=== PATIENT | female | born 1950 | race Caucasian/White ===

== ENCOUNTER 2024-07-03 17:07 | Inpatient (IN) | payer MEDICARE ==
[~2024-07-03] VITALS: Ht 170.2 cm; Wt 45.0 kg
[~2024-07-03 17:07] MED LIST: ? HTN MED; ALBU90OI6 INH; CITA20 PO; LISI20 PO; LISI5 PO; TRAACE PO; [UNRECOGNIZED DRUG - REMARK]
[2024-07-03 17:56] LABS: BASOPHILS ABSOLUTE AUTO 0.03 K/mm3 (0.00-0.23); BASOPHILS PERCENT AUTO 1 % (0-2); EOSINOPHILS PERCENT AUTO 0 % (0-6); Hematocrit 42.2 % (33.0-51.0); Hemoglobin 14.4 g/dL (11.5-16.0); IMMATURE GRAN ABSOLUTE AUTO 0.07 K/mm3 (0.00-0.10); IMMATURE GRAN PERCENT AUTO 1 % (0-1); LYMPHOCYTES ABSOLUTE AUTO 0.53 K/mm3 (0.84-5.20); LYMPHOCYTES PERCENT AUTO 10 % (21-46); MONOCYTES ABSOLUTE AUTO 0.51 K/mm3 (0.16-1.47); MONOCYTES PERCENT AUTO 10 % (4-13); Mean Corpuscular HGB 31.9 pg (26.0-34.0); Mean Corpuscular HGB Conc 34.1 g/dL (31.5-36.5); Mean Corpuscular Volume 93 fL (80-100); Mean Platelet Volume 10.4 fL (9.1-12.4); NEUTROPHILS ABSOLUTE AUTO 4.05 K/mm3 (1.96-9.15); NEUTROPHILS PERCENT AUTO 78 % (41-73); Platelet Count 79 K/mm3 (150-400); RDW Coefficient Variation 12.1 % (11.7-14.2); RDW Standard Deviation 42.4 fL (35.1-46.3); Red Blood Cell Count 4.52 M/mm3 (3.80-5.20); White Blood Cell Count 5.19 K/mm3 (4.00-11.30)
[2024-07-03 18:14] LABS: Bun/Creatinine Ratio 55.7 (12.0-20.0); Calcium, Blood 8.6 mg/dL (8.5-10.1); Creatinine, Blood 0.43 mg/dL (0.40-1.00); Potassium, Blood 3.7 mmol/L (3.5-5.5)
[2024-07-03 19:48] LABS: Source, Urine Clean Catch
[2024-07-03 19:50] LABS: Appearance, Urine Hazy (Clear); Blood, Urine 1+ (Neg); Color, Urine Yellow (P-Yellow); Glucose Qualitative, Urine Neg (Neg); Ketones, Urine 4+ (Neg); Leukocyte Esterase, Urine 1+ (Neg); Nitrite, Urine Neg (Neg); Protein, Urine 2+ (Neg); Urobilinogen, Urine 2+ (Normal)
[2024-07-03 19:56] LABS: Bilirubin, Urine 1+ (Neg)
[2024-07-03 20:06] LABS: Bacteria Many /hpf; Mucus Mod (0-Heavy); Squamous Epithelial Cells Mod /hpf (Few)
[2024-07-03] MEDS ORDERED: Ondansetron Odt8 MG MM (20:15)
[2024-07-03] MEDS ORDERED: CELEXA40 M9 PO (20:15)
[2024-07-03] MEDS ORDERED: FOLI1 PO (20:15)
[2024-07-03] MEDS ORDERED: LISI20 PO (20:15)
[2024-07-03] MEDS ORDERED: ATOR40TA PO (20:15)
[2024-07-03 20:30] LABS: Influenza A, PCR NEGATIVE (NEGATIVE); Influenza B, PCR NEGATIVE (NEGATIVE); Resp Syncytial Virus, PCR NEGATIVE (NEGATIVE); SARS-Cov-2 (COVID-19) PCR, MMC NEGATIVE (NEGATIVE)
[2024-07-03 21:12] LABS: Anti-Xa UFH, PHA Monitoring <0.10 IU/mL; International Normalized Ratio 1.29; Prothrombin Time Results 13.5 Sec (9.7-11.5)
[2024-07-03] MEDS ORDERED: Heparin Sodium,Porcine/0.5 NS 500 ML IV SCH (21:20)
[2024-07-03] MEDS ORDERED: Acetaminophen 325 MG TABLET PO PRN (23:40)
[2024-07-03] MEDS ORDERED: FLU VACC TS2024-25(6MOS UP)/PF 45 MCG/0.5 ML SYRINGE IM SCH (23:40)
[2024-07-03] MEDS ORDERED: Ondansetron 4 MG TAB PO PRN (23:40)
[2024-07-03] MEDS ORDERED: Magnesium Hydroxide Conc 10 ML UDC PO PRN (23:45)
[2024-07-04 00:15] VITALS: BP 150/82
--- NOTE | 2024-07-04 01:20 | NUR ---
ASSUMED CARE PT ARRIVED ON UNIT AT 0005; SPO2 >92% ON 4LNC; MAP >65; RATE IN THE 100'S. PT DENIES CP AND NAUSEA. COMPLAINS OF SOB. PT BECOMES TACHYPNEIC W/ EXERTION W/ RR 16~ AT REST. PT HAD FECAL MATTER ALL OVER FEET AND FULL HEAD TO TOE [place] WAS GIVEN BY WARP TENSION TESTER'S. DECUBITUS ULCER ON LEFT BUTTOX W/ PICTURE TAKEN. HEELS RED AND FOAM PROTECTOR APPLIED. PT IS RESTING QUIETLY AT THIS TIME.
--- NOTE | 2024-07-04 01:30 | NUR ---
WOUND DR DESAI AWARE OF DECUBITUS ULCER ON LEFT BUTTOX.
--- NOTE | 2024-07-04 02:13 | NUR ---
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 ED NOTES STATE THAT EMS FOUND PT'S HOUSE TO HAVE FECES AND URINE "EVERYWHERE". PT ALSO CAME IN PER NOTE W/ FECES AND URINE SOAKED INTO CLOTHES ALSO W/ FECES "CAKED INTO LOWER HALF OF HER BODY". PT ALSO ARRIVED UNIT W/ FECES CAKED INTO BOTH FEET. FULL HEAD TO TOE BATH WAS GIVEN BY PCT'S. CALL WAS MADE TO APS AND MESSAGE WAS LEFT TO REPORT POTENTIAL NEGLECT.
[2024-07-04 03:14] VITALS: BP 146/102
[2024-07-04 04:18] LABS: BASOPHILS ABSOLUTE AUTO 0.04 K/mm3 (0.00-0.23); BASOPHILS PERCENT AUTO 1 % (0-2); EOSINOPHILS PERCENT AUTO 0 % (0-6); Hemoglobin 14.2 g/dL (11.5-16.0); IMMATURE GRAN ABSOLUTE AUTO 0.05 K/mm3 (0.00-0.10); IMMATURE GRAN PERCENT AUTO 1 % (0-1); LYMPHOCYTES PERCENT AUTO 15 % (21-46); MONOCYTES ABSOLUTE AUTO 0.76 K/mm3 (0.16-1.47); MONOCYTES PERCENT AUTO 12 % (4-13); Mean Corpuscular HGB 31.9 pg (26.0-34.0); Mean Corpuscular HGB Conc 33.8 g/dL (31.5-36.5); Mean Corpuscular Volume 94 fL (80-100); Mean Platelet Volume 10.7 fL (9.1-12.4); NEUTROPHILS ABSOLUTE AUTO 4.47 K/mm3 (1.96-9.15); NEUTROPHILS PERCENT AUTO 72 % (41-73); Platelet Count 83 K/mm3 (150-400); RDW Coefficient Variation 12.1 % (11.7-14.2); RDW Standard Deviation 42.7 fL (35.1-46.3); Red Blood Cell Count 4.45 M/mm3 (3.80-5.20); White Blood Cell Count 6.22 K/mm3 (4.00-11.30)
[2024-07-04 04:43] LABS: Albumin, Blood 2.3 g/dL (3.4-5.0); Albumin/Globulin Ratio 0.6 (0.8-1.8); Bilirubin, Total 0.5 mg/dL (0.1-1.0); Bun/Creatinine Ratio 63.2 (12.0-20.0); Calcium, Blood 8.4 mg/dL (8.5-10.1); Creatinine, Blood 0.38 mg/dL (0.40-1.00); Globulin, Blood 3.7 g/dL (2.2-4.0); Potassium, Blood 3.7 mmol/L (3.5-5.5)
--- NOTE | 2024-07-04 05:24 | NUR ---
SHIFT SUMMARY PT CONTINUES TO BE A&O THIS MORNING. NO COMPLAINTS FROM PT THIS AM. PT SWITCHED TO OXYMIZER THIS AM BY RT D/T PT MOUTH BREATHING AND IS NOW ON 8L VIA OXYMIZER. MAP >65, RATE IN THE 90-100'S. NO ACUTE EVENTS. HEPARIN GTT INFUSING PER EMAR.
[2024-07-04] MEDS ORDERED: Clarify Drug Order XX ONE (06:10)
--- NOTE | 2024-07-04 08:40 | NUR ---
Initial assessment: Patient is resting with eyes closed, easily awakens with verbal stimuli. She is oriented x4, she denies pain at this time. HRR, SR with PVCs and PACs. She states she is having some difficulty breathing, she is on 10L on the oxy mask, sturations in the low 90s. Resp therapy called to come and assess the patient due to WOB. BT+, patient is chaectic-she states she has not been eating or drinking much lately. PPP. She has a mepilex dressing to her left buttock, per the CT report she has a pressure injury, the depth of the wound is to her bone. She is able to get on the bedpan and urinate.
[2024-07-04] MEDS ORDERED: Folic Acid 1 MG TAB PO SCH (09:00)
[2024-07-04] MEDS ORDERED: Citalopram Hydrobromide 20 MG Tab PO SCH (09:00)
[2024-07-04] MEDS ORDERED: Lisinopril 20 MG Tab PO SCH (09:00)
[2024-07-04] MEDS ORDERED: Atorvastatin 40 MG Tab PO SCH (09:00)
[2024-07-04] MEDS ORDERED: Enoxaparin 40 MG/0.4 ML SYR SC SCH (09:00)
[2024-07-04] MEDS ORDERED: Trimethoprim/Sulfamethoxazole DS Tab PO SCH (09:00)
[2024-07-04] MEDS ORDERED: Albuterol 2.5 MG/3 ML VIAL INH PRN (09:35)
--- NOTE | 2024-07-04 10:30 | NUR ---
Update: Palliative care came to see the patient to discuss goals of care. Patient verbalizes the need to priortize comfort. Call placed to the patients sister and nephew to provide updates.
[2024-07-04] MEDS ORDERED: Dose Adjust by Pharmacy XX STA (10:59)
--- NOTE | 2024-07-04 11:06 | NUR ---
Case Conference: Met with pt along with Dr. Lao and bedside RN. The patient states her desire to improve her breathing fdc, but understands this is unlikely in the fdc. She is agreeable to begin comfort care, and as she requested I did inform her sister Sandra who is also agreeable to this plan. Left message for pt's nephew.
[2024-07-04] MEDS ORDERED: LORazepam 1 MG Tab PO PRN (12:10)
[2024-07-04] MEDS ORDERED: Morphine Sulfate 20 MG/1ML 1 ML Oral Syringe SL PRN (12:10)
[2024-07-04] MEDS ORDERED: LORazepam 2 MG/ML 1ML Injection IV PRN (12:10)
[2024-07-04] MEDS ORDERED: Scopolamine Hydrobromide Patch TOP PRN (12:10)
[2024-07-04] MEDS ORDERED: Atropine Sulfate 1% Opth Soln 2ML BTL SL PRN (12:10)
[2024-07-04] MEDS ORDERED: Promethazine HCl 25 MG Supp PR PRN (12:10)
[2024-07-04] MEDS ORDERED: Ondansetron HCl 2 MG / ML 2ML Vial IV PRN (12:10)
--- NOTE | 2024-07-04 17:57 | NUR ---
Summary: Patient has been alert and lethargic T/O the shift, she is oriented x4. She C/O pain in her head and eyes this evening, pain is well controlled with Roxanol. LS have been DIM and coarse T/O, her biox has been stable on 3l 02 via oxy mask. She is very chaectic. This RN, the MD and the palliative care RN had an extensive converstaion regarding prognosis and treatment, she has elected to be comfort care and proceed with hospice if appropriate. Palliative care RN talked with sister and nephew, they are both agreeable to the plan. She has been comfortable with the comfort care medications. No other changes this shift, will report to oncoming RN.
--- NOTE | 2024-07-04 22:18 | NUR ---
SHIFT SUMMARY ASSUMED CARE OF PT AT 1900. PT ALERT AND ORIENTED, ON 3LNC AND DENIES PAIN. RECIEVED INFO THE PATIENT WILL BE TRANSFERRED TO MEDICAL FLOOR. CALLED REPORT TO MYLA CAO AND NOTIFIED DAVY, PT SISTER, OF ROOM TRANSFER.
--- NOTE | 2024-07-04 22:41 | NUR ---
TRANSFER NOTE HANDOFF RECEIVED FROM SPORTS MEDICINE SPECIALIST SHEREE. PT ARRIVED TO MEDICAL FLOOR VIA GURNEY AT 2207 HOURS. PT ORIENTED TO UNIT. 4.5 LPM O2 VIA NE. US IN PLACE. COMFORT CARE PATIENT WITH COMFORT ORDERS IN PLACE. CALL BUTTON WITHIN REACH. SHE DENIES PAIN AND/OR DISCOMFORT AT THIS TIME.
[2024-07-05] MEDS ORDERED: CARVEDILOL12.5 MG PO (00:03)
--- NOTE | 2024-07-05 04:12 | NUR ---
SHIFT SUMMARY TRANSFERED FROM PCU THIS SHIFT. ADMITTED FOR LLL PNEUMONIA/RLL PULMONARY EMBOLISM. DNR CODE. ON COMFORT CARE. US IN PLACE. SHE IS ON 4 1/2 LPM O2 VIA NC. REGULAR DIET. SHE IS A&O X3-4. SHE CAN MAKE HER NEEDS KNOWN. SHE IS ON BEDREST. THERE IS A STAGE 4 ULCER ON HER LEFT BUTTOCK. WE HAVE BEEN TURNING HER SHE PERMITS. HX OF LUNG CANCER W/METS TO ADRENAL GLANDS AND BRAIN.
--- NOTE | 2024-07-05 18:21 | NUR ---
SHIFT SUMMARY PATIENT REPORTED AIR HUNGER/SHORTNESS OF BREATH THIS MORNING. 10MG OF ROXANOL GIVN AND PATIENT REPOSITIONED. 4L/NC FOR COMFORT. PATIENT SLEEPING BUT EASILY AROUSABLE MOST OF SHIFT. FAMILY AT BEDSIDE FOR PART OF DAY. US PATENT AND DRAINING. SECOND DOSE OF ROXANOL 5MG GIVEN THIS AFTERNOON FOR HEADACHE. PATIENT DECLINES ATIVAN AT THIS TIME BUT OPEN TO A DOSE AT BEDTIME IF SHE IS FEELING RESTLESS. ATROPINE GIVEN X1 FOR INCREASED SECRESTIONS THIS AFTERNOON. PLEASANT AND COOPERATIVE WITH CARE.
--- NOTE | 2024-07-06 05:22 | NUR ---
SHIFT SUMMARY; PT ALERT ORIENTED X 4 AND RESPONDS WHEN SPOKEN TO. SHE REMAINS ON COMFORT CARE R/T LUNG CANCER WITH METS TO THE BRAIN. US CATHETER INTACT WITH 200ML OUTPUT OF MARTA URINE. SHE REMAINS VERY COARSE AND CONGESTED WITH LOTS OF PLEGM. SCOPALAMINE PATCH WAS APPLIED TO BACK OF RT EAR WHICH SEEMED TO HELP. REMAINS ON ROXANOL FOR PAIN RELIEF AND WAS GIVEN 1 DOSE R/T GENERALIZED PAIN. SHES KEPT TURNED Q2HR. SHE HAS A LT BUTTOCKS ULCER WITH DRESSING INTACT TO AREA. REMAINS ON 4L O2 VIA NC. NO C/O SOB AT THIS TIME. SLEEPING AT THIS TIME.
--- NOTE | 2024-07-06 18:19 | NUR ---
SHIFT SUMMARY PT RESPONDED TO VERBAL STIMULI AND APPEARED TO REST PEACEFULLY. PT MEDICATED W/ ROXANOL X1 AND DENIED PAIN AFTER ADMINISTRATION T/O THE SHIFT. FAMILY AT BEDSIDE INTERMIT. CALL LIGHT WITHIN REACH.
--- NOTE | 2024-07-07 03:32 | NUR ---
SHIFT SUMMARY; PT RESPONDS TO PAINFUL STIMULI, HER LUNG SOUNDS REMAIN COARSE WITH CONGESTION. REMAINS WITH SCOPALAMINE PATCH TO BACK OF RT EAR. HAS BEEN HAVING AIR HUNGER THIS SHIFT WITH SLIGHTLY LABORED BREATHING. HAS BEEN MEDICATED WITH ROXANOL. REMAINS ON 4L O2 VIA NC. REMAINS ON COMFORT CARE. HAS A ULCER TO HER LT BUTTOCKS. DRESSING IS INTACT. SHES BEING TURNED Q2HR. US CATH INTACT DRAINING MARTA URINE. RESTING IN BED AT THIS TIME.
[2024-07-07] MEDS ORDERED: LORazepam 1 MG Tab PO PRN (09:20)
--- NOTE | 2024-07-07 15:55 | NUR ---
Pt peacefully at 1543. Placed call to pt's daughter Oriana to inform her and give condolences. She thanked this RN, and quickly ended the call, stating she is in between flights. Bedside RN working with charge nurse for discharge of patient.
--- NOTE | 2024-07-07 15:56 | NUR ---
PT AT 1543. ADVANCE AGENT SUMANTH NOTIFIED AND VERIFIED. THIS NURSE NOTIFIED AND SYDNI IN PALLIATIVE CARE. SYDNI TO NOTIFY DAUGHTER GREGG. [facility] DIRECTORS CONTACTED AND NOTIFIED.
== END 2024-07-07 15:43 | DRG 175 ==
LOC: ER 17:07 → MEDS 22:16 → PCU 22:16 → MEDS 07-04 22:07
PROVIDERS: Emergency Medicine; Student in an Organized Health Care Education/Training Program; ADMIT Internal Medicine
PROC: 5A0935A Assistance with Respiratory Ventilation, Less than 24 Consecutive Hours, High Flow/Velocity Cannula (ICD-10-PCS; principal; 2024-07-04)
PROC: 0T9B70Z Drainage of Bladder with Drainage Device, Via Natural or Artificial Opening (ICD-10-PCS; 2024-07-04)
PROC: B24BZZZ Ultrasonography of Heart with Aorta (ICD-10-PCS; 2024-07-04)
DX: I26.09 Other pulmonary embolism with acute cor pulmonale (principal); I21.A1 Myocardial infarction type 2; J96.01 Acute respiratory failure with hypoxia; C34.90 Malignant neoplasm of unspecified part of unspecified bronchus or lung; C79.31 Secondary malignant neoplasm of brain; N39.0 Urinary tract infection, site not specified; R64 Cachexia; Z68.1 Body mass index [BMI] 19.9 or less, adult; T76.01XA Adult neglect or abandonment, suspected, initial encounter; Z66 Do not resuscitate; Z51.5 Encounter for palliative care; E61.2 Magnesium deficiency; I10 Essential (primary) hypertension; G89.29 Other chronic pain; M54.9 Dorsalgia, unspecified; Z74.1 Need for assistance with personal care; L89.329 Pressure ulcer of left buttock, unspecified stage; J44.9 Chronic obstructive pulmonary disease, unspecified; E78.5 Hyperlipidemia, unspecified; F41.8 Other specified anxiety disorders; E27.9 Disorder of adrenal gland, unspecified; R54 Age-related physical debility; Z60.2 Problems related to living alone; E87.8 Other disorders of electrolyte and fluid balance, not elsewhere classified; Z88.0 Allergy status to penicillin; Z88.5 Allergy status to narcotic agent; Z79.899 Other long term (current) drug therapy; Z87.891 Personal history of nicotine dependence; Z92.3 Personal history of irradiation
CPT/HCPCS: 0241U; 36415; 71260; 74177; 80048; 80053; 81001; 83605; 83735; 83880; 84484; 85025; 85520; 85610; 85730; 87040; 87086; 93005; 93010; 93306; 94640; 94664; 94760; 94762; 96365-59; 99285-25; A9270; J1644; Q9967